=== PATIENT | male | born 1970 | race Caucasian/White ===

== ENCOUNTER 2017-07-02 18:56 | Inpatient (IN) | payer OTHER ==
[2017-07-02 19:12] VITALS: BMI 23.7
--- NOTE | 2017-07-02 19:59 | HP ---
CIWA Score - CIWA Score Nausea/Vomitin-Mild Nausea/No Vomiting Muscle Tremors: 4-Moderate,w/Arms Extend Anxiety: 4-Mod. Anxious/Guarded Agitation: 4-Moderately Restless Paroxysmal Sweats: 1-Minimal Palms Moist Orientation: 0-Oriented Tacttile Disturbances: 0-None Auditory Disturbances: 0-None Visual Disturbances: 0-None Headache: 0-None Present CIWA-Ar Total Score: 14 Admission ROS BHS - HPI Chief Complaint: withdrawal sx Allergies/Adverse Reactions: Allergies Allergy/AdvReac Type Severity Reaction Status Date / Time No Known Allergies Allergy Verified 07/02/17 19:11 History of Present Illness: 47 years old male with long history of alcohol dependence has hypertension hyperlipidemia and anxiety is admitted to detox Exam Limitations: No Limitations - Ebola screening Have you traveled outside of the country in the last 21 days: No Have you had contact with anyone from an Ebola affected area: No Have you been sick,other than usual withdrawal symptoms: No Do you have a fever: No - Review of Systems Constitutional: Loss of Appetite, Changes in sleep, Unintentional Wgt. Loss, Unexplained wgt Loss EENT: reports: No Symptoms Reported Respiratory: reports: No Symptoms reported Cardiac: reports: No Symptoms Reported GI: reports: Nausea, Poor Appetite, Poor Fluid Intake, Abdominal cramping : reports: No Symptoms Reported Musculoskeletal: reports: No Symptoms Reported Integumentary: reports: No Symptoms Reported Neuro: reports: Tremors Endocrine: reports: No Symptoms Reported Hematology: reports: No Symptoms Reported Psychiatric: reports: Judgement Intact, Orientated x3, Anxious, Depressed Other Systems: Reviewed and Negative Patient History - Patient Medical History Hx Anemia: No Hx Asthma: No Hx Chronic Obstructive Pulmonary Disease (COPD): No Hx Cancer: No Hx Cardiac Disorders: No Hx Congestive Heart Failure: No Hx Hypertension: Yes Hx Hypercholesterolemia: No Hx Pacemaker: No HX Cerebrovascular Accident: No Hx Seizures: No Hx Dementia: No Hx Diabetes: No Hx Gastrointestinal Disorders: No Hx Liver Disease: No Hx Genitourinary Disorders: No Hx Sexually Transmitted Disorders: No Hx Renal Disease (ESRD): No Hx Thyroid Disease: No Hx Human Immunodeficiency Virus (HIV): No Hx Hepatitis C: No Hx Depression: Yes Hx Suicide Attempt: No Hx Bipolar Disorder: No Hx Schizophrenia: No - Patient Surgical History Past Surgical History: No - PPD History Previous Implant?: Yes Documented Results: Negative w/o proof Implanted On Prior [facility] Admission?: No PPD to be Administered?: Yes - Smoking Cessation Smoking history: Never smoked Have you smoked in the past 12 months: No Hx Chewing Tobacco Use: No Initiated information on smoking cessation: No - Substance & Tx. History Hx Alcohol Use: Yes Hx Substance Use: No Substance Use Type: Alcohol Hx Substance Use Treatment: No - Substances Abused Alcohol Route: Oral Frequency: Daily Amount used: WINE 1 1/2 LITER, BEER 6 PACKS Age of first use: 12 Date of Last Use: 07/01/[address] [facility] - Vital Signs Vital Signs: Vital Signs - 24 hr 07/02/17 19:11 Temperature 98.2 F Pulse Rate 93 H Respiratory 18 Rate Blood Pressure 153/91 - Physical General Appearance: Yes: Appropriately Dressed, Moderate Distress, Thin, Tremorous, Irritable, Sweating, Anxious HEENTM: Yes: Hearing grossly Normal, Normal ENT Inspection, Normocephalic, Normal Voice Respiratory: Yes: Chest Non-Tender, Lungs Clear, Normal Breath Sounds, No Respiratory Distress, No Accessory Muscle Use Neck: Yes: Supple, Trachea in good position Breast: Yes: Breasts Symetrical Cardiology: Yes: Regular Rhythm, S1, S2, Tachycardia Abdominal: Yes: Normal Bowel Sounds, Non Tender, Soft Genitourinary: Yes: Within Normal Limits Back: Yes: Normal Inspection Musculoskeletal: Yes: full range of Motion, Gait Steady Extremities: Yes: Normal Inspection, Normal Range of Motion, Non-Tender, Tremors Neurological: Yes: Fully Oriented, Alert, Motor Strength 5/5, Normal Response, Depressed Affect Integumentary: Yes: Warm Lymphatic: Yes: Within Normal Limits - Diagnostic (1) Alcohol dependence with uncomplicated withdrawal Current Visit: Yes Status: Acute (2) Hypertension Current Visit: Yes Status: Chronic Qualifiers: Hypertension type: essential hypertension Qualified Code(s): I10 - Essential (primary) hypertension (3) Hyperlipidemia Current Visit: Yes Status: Chronic Qualifiers: Hyperlipidemia type: pure hypercholesterolemia Qualified Code(s): E78.00 - Pure hypercholesterolemia, unspecified; E78.0 - Pure hypercholesterolemia (4) Weight loss Current Visit: Yes Status: Acute (5) Anxiety Current Visit: Yes Status: Suspected Cleared for Admission [facility] - Detox or Rehab [facility] Level of Care: Medically Managed Detox Regimen/Protocol: Librium BHS Breath Alcohol Content Breath Alcohol Content: 0 Urine Drug Screen - Results Drug Screen Negative: Yes
[2017-07-02] MEDS ORDERED: LOPERAMIDE HCL 2 MG CAPSULE PO PRN (20:03)
[2017-07-02] MEDS ORDERED: chlordiazePOXIDE HCL 25 MG CAPSULE PO ONE (20:03)
[2017-07-02] MEDS ORDERED: P-EPHED 60MG/TRIPROLIDI 2.5MG TABLET PO PRN (20:03)
[2017-07-02] MEDS ORDERED: hydrOXYzine PAMOATE 50 MG CAPSULE (FP) PO PRN (20:03)
[2017-07-02] MEDS ORDERED: MAG HYDROX/AL HYDROX/SIMETH 30 ML UNIT-DOSE CUP PO PRN (20:03)
[2017-07-02] MEDS ORDERED: ACETAMINOPHEN 325 MG TABLET (FP) PO PRN (20:03)
[2017-07-02] MEDS ORDERED: MAGNESIUM HYDROX 2400MG/30ML ORAL SUSPENSION 30 ML CUP PO PRN (20:03)
[2017-07-02] MEDS ORDERED: guaiFENesin/D-METHORPHAN HB 10 ML UNIT-DOSE CUPS PO PRN (20:03)
[2017-07-02] MEDS ORDERED: IBUPROFEN 400 MG TABLET (FP) PO PRN (20:03)
[2017-07-02] MEDS ORDERED: chlordiazePOXIDE HCL 25 MG CAPSULE PO PRN (20:03)
[2017-07-02] MEDS ORDERED: MAGNESIUM CITRATE 300 ML BOTTLE PO PRN (20:03)
[2017-07-02] MEDS ORDERED: diphenhydrAMINE HCL 50 MG CAPSULE PO PRN (20:03)
[2017-07-02] MEDS ORDERED: MENTHOL/PHENOL 1 EACH UD MM PRN (20:03)
[2017-07-02] MEDS: METOPROLOL TARTRATE 50 MG TABLET (FP) PO SCH (22:24)
[2017-07-02] MEDS: chlordiazePOXIDE HCL 25 MG CAPSULE PO SCH (22:25)
[2017-07-02] MEDS: THIAMINE HCL 100 MG TABLET (FP) PO SCH (22:26)
[2017-07-02 22:32] LABS: URINE APPEARANCE CLEAR; URINE BILIRUBIN NEGATIVE (NEGATIVE); URINE BLOOD NEGATIVE (NEGATIVE); URINE COLOR LTYELLOW; URINE GLUCOSE (UA) 2+ (NEGATIVE); URINE KETONE 1+ (NEGATIVE); URINE LEUK ESTERASE NEGATIVE (NEGATIVE); URINE NITRITE NEGATIVE (NEGATIVE); URINE PROTEIN NEGATIVE (NEGATIVE); URINE UROBILINOGEN NEGATIVE mg/dL (0.2-1.0)
[2017-07-02] MEDS: ROSUVASTATIN CA 20 MG TABLET (FP) PO SCH (22:56)
[2017-07-03] MEDS: chlordiazePOXIDE HCL 25 MG CAPSULE PO SCH ×4 (05:28→22:44)
[2017-07-03 09:59] LABS: MCH 33.9 pg (25.7-33.7); MCHC 34.1 g/dl (32.0-35.9); MEAN CELL VOLUME 99.2 fl (80-96); MEAN PLT VOLUME 9.2 fl (7.5-11.1); PLATELET COUNT 123 K/MM3 (134-434); RDW 12.5 % (11.9-15.9); WHITE BLOOD COUNT 5.7 K/mm3 (4.0-10.0)
--- NOTE | 2017-07-03 10:01 | CONSULT ---
[facility] Psychiatric Consult - Data Date of interview: 07/03/17 Admission source: [facility] Identifying data: This is 47 years old male with no psychiatric hospitalization history iontoxicated with: Alcohol Substance Abuse History: - Smoking Cessation. Smoking history: Never smoked. Have you smoked in the past 12 months: No. Hx Chewing Tobacco Use: No. Initiated information on smoking cessation: No. - Substance & Tx. History. Hx Alcohol Use: Yes. Hx Substance Use: No. Substance Use Type: Alcohol. Hx Substance Use Treatment: No. - Substances Abused. Alcohol. Route: Oral. Frequency: Daily. Amount used: WINE 1 1/2 LITER, BEER 6 PACKS. Age of first use: 12. Date of Last Use: 07/01/17 Medical History: Weight loss, Hyperliopidemia, HTN Psychiatric History: PATIENT REPORTS HISTORY OF ANXIETY, REPORTS NO MEDICATIONS TAKING PRIOR TO ADMISSION Physical/Sexual Abuse/Trauma History: Denies Additional Comment: Observation. Detox Unit Care Protocol Mental Status Exam - Mental Status Exam Alert and Oriented to: Person Cognitive Function: Fair Patient Appearance: Unkempt Mood: Sad Affect: Flat Patient Behavior: Sedated Speech Pattern: Delayed Voice Loudness: Mildly Soft/Quiet Thought Process: Circumstantial Thought Disorder: Being Controlled Hallucinations: Denies Suicidal Ideation: Denies Homicidal Ideation: Denies Insight/Judgement: Fair Sleep: Difficulty falling asleep Appetite: Weight loss Muscle strength/Tone: Mild Hypotonicity Gait/Station: Shuffling Additional Comments: Observation. Detox Unit Care Protocol Psychiatric Findings - Problem List ([place] 1, 2,3) (1) Alcohol dependence with uncomplicated withdrawal Current Visit: Yes Status: Acute (2) Weight loss Current Visit: Yes Status: Acute (3) Alcohol-induced anxiety disorder Current Visit: Yes Status: Acute (4) Alcohol induced insomnia Current Visit: Yes Status: Acute - Initial Treatment Plan Initial Treatment Plan: Observation. Detox Unit Care Protocol
[2017-07-03 10:23] LABS: ALBUMIN 3.9 g/dl (3.4-5.0); ALK PHOS 65 U/L (45-117); ANION GAP 8 (8-16); BILIRUBIN,TOTAL 1.3 mg/dL (0.2-1.0); CALCIUM 9.2 mg/dL (8.5-10.1); CO2 32 mmol/L (21-32); CREATININE 0.8 mg/dL (0.7-1.3); GLUCOSE,RANDOM 87 mg/dL (74-106); SGOT/AST 175 U/L (15-37); SGPT/ALT 201 U/L (12-78); TOT PROT 6.8 g/dl (6.4-8.2)
[2017-07-03] MEDS: PRENATAL VITAMINS W/ FOLIC ACID TABLET (FP) PO SCH (10:41)
[2017-07-03] MEDS: amLODIPine BESYLATE 5 MG TABLET (FP) PO SCH (10:42)
[2017-07-03] MEDS: METOPROLOL TARTRATE 50 MG TABLET (FP) PO SCH ×2 (10:42→22:40)
--- NOTE | 2017-07-03 12:30 | EKG ---
Test Reason : Blood Pressure : / mmHG Vent. Rate : 093 BPM Atrial Rate : 093 BPM P-R Int : 168 ms QRS Dur : 090 ms QT Int : 338 ms P-R-T Axes : 028 035 061 degrees QTc Int : 420 ms NORMAL SINUS RHYTHM SEPTAL INFARCT , AGE UNDETERMINED ABNORMAL ECG NO PREVIOUS ECGS AVAILABLE Confirmed by JN WHITTAKER, GINA ([id number]) on 07/03/2017 12:30:36 PM Referred By: Confirmed By:GINA RAGSDALE MD
--- NOTE | 2017-07-03 12:54 | PN ---
S CIWA - CIWA Score Nausea/Vomitin-No Nausea/No Vomiting Muscle Tremors: 3 Anxiety: 4-Mod. Anxious/Guarded Agitation: 4-Moderately Restless Paroxysmal Sweats: 3 Orientation: 0-Oriented Tacttile Disturbances: 0-None Auditory Disturbances: 0-None Visual Disturbances: 0-None Headache: 0-None Present CIWA-Ar Total Score: 14 BHS Progress Note (SOAP) Subjective: sweats interrupted sleep agitation body aches tremors Objective: 07/03/17 12:53 Vital Signs Temperature 98.1 F 07/03/17 10:03 Pulse Rate 91 H 07/03/17 10:03 Respiratory Rate 18 07/03/17 10:03 Blood Pressure 132/81 07/03/17 10:03 O2 Sat by Pulse Oximetry (%) Laboratory Tests 07/02/17 07/03/17 07/03/17 21:30 07:00 07:00 WBC 5.7 RBC 4.30 Hgb 14.6 Hct 42.7 MCV 99.2 H MCH 33.9 H MCHC 34.1 RDW 12.5 Plt Count 123 L MPV 9.2 Sodium 141 Potassium 3.8 Chloride 101 Carbon Dioxide 32 Anion Gap 8 BUN 12 Creatinine 0.8 Creat Clearance w eGFR > 60 Random Glucose 87 Calcium 9.2 Total Bilirubin 1.3 H AST 175 H ALT 201 H Alkaline Phosphatase 65 Total Protein 6.8 Albumin 3.9 Urine Color Ltyellow Urine Appearance Clear Urine pH 6.0 Urine Protein Negative Urine Glucose (UA) 2+ H Urine Ketones 1+ H Urine Blood Negative Urine Nitrite Negative Urine Bilirubin Negative Urine Urobilinogen Negative Ur Leukocyte Esterase Negative RPR Titer 07/03/17 07:00 WBC RBC Hgb Hct MCV MCH MCHC RDW Plt Count MPV Sodium Potassium Chloride Carbon Dioxide Anion Gap BUN Creatinine Creat Clearance w eGFR Random Glucose Calcium Total Bilirubin AST ALT Alkaline Phosphatase Total Protein Albumin Urine Color Urine Appearance Urine pH Urine Protein Urine Glucose (UA) Urine Ketones Urine Blood Urine Nitrite Urine Bilirubin Urine Urobilinogen Ur Leukocyte Esterase RPR Titer Nonreactive AAOx3 elevated ast/alt; d/c tylenol ambulating no acute distress Assessment: 07/03/17 12:53 withdrawal sx Plan: continue detox increase fluids
[2017-07-03] MEDS: THIAMINE HCL 100 MG TABLET (FP) PO SCH (22:43)
[2017-07-03] MEDS: ROSUVASTATIN CA 20 MG TABLET (FP) PO SCH (22:44)
[2017-07-04] MEDS: chlordiazePOXIDE HCL 25 MG CAPSULE PO SCH ×3 (05:57→17:45)
--- NOTE | 2017-07-04 10:28 | PN ---
S CIWA - CIWA Score Nausea/Vomitin Muscle Tremors: 3 Anxiety: 3 Agitation: 2 Paroxysmal Sweats: 1-Minimal Palms Moist Orientation: 0-Oriented Tacttile Disturbances: 1-Very Mild Itch/Numbness Auditory Disturbances: 1-Very Mild Visual Disturbances: 0-None Headache: 2-Mild CIWA-Ar Total Score: 16 S Progress Note (SOAP) Subjective: ALERT,IRRITABLE,ANXIOUS,INTERRUPTED SLEEP,TREMOR Objective: 07/04/17 10:27 Vital Signs Temperature 99.3 F 07/04/17 09:57 Pulse Rate 85 07/04/17 09:57 Respiratory Rate 18 07/04/17 09:57 Blood Pressure 114/82 07/04/17 09:57 O2 Sat by Pulse Oximetry (%) Laboratory Last Values WBC 5.7 K/mm3 (4.0-10.0) 07/03/17 07:00 RBC 4.30 M/mm3 (4.00-5.60) 07/03/17 07:00 Hgb 14.6 GM/dL (11.7-16.9) 07/03/17 07:00 Hct 42.7 % (35.4-49) 07/03/17 07:00 MCV 99.2 fl (80-96) H 07/03/17 07:00 MCH 33.9 pg (25.7-33.7) H 07/03/17 07:00 MCHC 34.1 g/dl (32.0-35.9) 07/03/17 07:00 RDW 12.5 % (11.9-15.9) 07/03/17 07:00 Plt Count 123 K/MM3 (134-434) L 07/03/17 07:00 MPV 9.2 fl (7.5-11.1) 07/03/17 07:00 Sodium 141 mmol/L (136-145) 07/03/17 07:00 Potassium 3.8 mmol/L (3.5-5.1) 07/03/17 07:00 Chloride 101 mmol/L (98-107) 07/03/17 07:00 Carbon Dioxide 32 mmol/L (21-32) 07/03/17 07:00 Anion Gap 8 (8-16) 07/03/17 07:00 BUN 12 mg/dL (7-18) 07/03/17 07:00 Creatinine 0.8 mg/dL (0.7-1.3) 07/03/17 07:00 Creat Clearance w eGFR > 60 (>60) 07/03/17 07:00 Random Glucose 87 mg/dL (74-106) 07/03/17 07:00 Calcium 9.2 mg/dL (8.5-10.1) 07/03/17 07:00 Total Bilirubin 1.3 mg/dL (0.2-1.0) H 07/03/17 07:00 AST 175 U/L (15-37) H 07/03/17 07:00 ALT 201 U/L (12-78) H 07/03/17 07:00 Alkaline Phosphatase 65 U/L (45-117) 07/03/17 07:00 Total Protein 6.8 g/dl (6.4-8.2) 07/03/17 07:00 Albumin 3.9 g/dl (3.4-5.0) 07/03/17 07:00 Urine Color Ltyellow 07/02/17 21:30 Urine Appearance Clear 07/02/17 21:30 Urine pH 6.0 (5.0-8.0) 07/02/17 21:30 Ur Specific [place] <= 1.005 (1.005-1.025) 07/02/17 21:30 Urine Protein Negative (NEGATIVE) 07/02/17 21:30 Urine Glucose (UA) 2+ (NEGATIVE) H 07/02/17 21:30 Urine Ketones 1+ (NEGATIVE) H 07/02/17 21:30 Urine Blood Negative (NEGATIVE) 07/02/17 21:30 Urine Nitrite Negative (NEGATIVE) 07/02/17 21:30 Urine Bilirubin Negative (NEGATIVE) 07/02/17 21:30 Urine Urobilinogen Negative mg/dL (0.2-1.0) 07/02/17 21:30 Ur Leukocyte Esterase Negative (NEGATIVE) 07/02/17 21:30 RPR Titer Nonreactive (NONREACTIVE) 07/03/17 07:00 Assessment: 07/04/17 10:27 WITHDRAWAL SYMPTOM Plan: CONTINUE DETOX,AST,ALT,INR IN AM
[2017-07-04] MEDS: amLODIPine BESYLATE 5 MG TABLET (FP) PO SCH (10:50)
[2017-07-04] MEDS: PRENATAL VITAMINS W/ FOLIC ACID TABLET (FP) PO SCH (10:50)
[2017-07-04] MEDS: METOPROLOL TARTRATE 25 MG TABLET (FP) PO SCH ×2 (10:50→22:26)
[2017-07-04] MEDS: ROSUVASTATIN CA 20 MG TABLET (FP) PO SCH (22:26)
[2017-07-04] MEDS: chlordiazePOXIDE 5 MG CAPSULE PO SCH (22:26)
[2017-07-04] MEDS: THIAMINE HCL 100 MG TABLET (FP) PO SCH (22:27)
[2017-07-05] MEDS: chlordiazePOXIDE 5 MG CAPSULE PO SCH (05:27)
[2017-07-05 06:40] VITALS: BP 128/72; PULSE 59; TEMP 97.8
--- NOTE | 2017-07-05 08:00 | PN ---
[facility] Progress Note Note: Pt. left AMA. He stated he could not complete detox and refused to wait for repeat labs. Reports minimal detox symptoms. He was given a copy of his labs and reports he will follow-up with his PCP regarding abnormal labs.
[2017-07-05] MEDS ORDERED: chlordiazePOXIDE HCL 10 MG CAPSULE PO SCH (23:00)
== END 2017-07-05 08:10 | disposition left against medical advice (07) | DRG 770 ==
LOC: YASAS 18:56 → Y6N 19:37
PROVIDERS: ADMIT Internal Medicine Addiction Medicine; ATTEND Internal Medicine Addiction Medicine
PROC: HZ2ZZZZ Detoxification Services for Substance Abuse Treatment (ICD-10-PCS; principal; 2017-07-02)
DX: F10.230 Alcohol dependence with withdrawal, uncomplicated (principal); F10.280 Alcohol dependence with alcohol-induced anxiety disorder; F10.282 Alcohol dependence with alcohol-induced sleep disorder; I10 Essential (primary) hypertension; E78.5 Hyperlipidemia, unspecified; R74.0 Nonspecific elevation of levels of transaminase and lactic acid dehydrogenase [LDH]; R00.0 Tachycardia, unspecified; Z87.898 Personal history of other specified conditions
CPT/HCPCS: 36415; 80053; 81003; 85027; 86593; 93005; 93010